=== PATIENT | female | born 1960 | race Caucasian/White ===

== ENCOUNTER 2021-03-23 11:20 | Outpatient (CLI) | payer OTHER, SELFPAY ==
--- NOTE | ~2021-03-23 | US_ITS ---
EXAMINATION: US renal BI DATE: 03/23/2021 12:46 INDICATION: Hypertension TECHNIQUE: Multiple grayscale and Doppler ultrasound images of the kidneys were obtained. COMPARISON: None. FINDINGS: The right kidney measures 8.5 x 3.2 x 4.2 cm. The left kidney measures 9.6 x 5 x 5.3 cm and contains a 4.4 cm cyst. The kidneys demonstrate normal parenchymal echogenicity. There is no hydrone phrosis. The bladder is normal. IMPRESSION: 1. Unremarkable kidneys without hydronephrosis. Reviewed, dictated and finalized at location A. T FLUNKY
--- NOTE | ~2021-03-23 | MM_ITS ---
EXAMINATION: MM screening [facility] BI w [facility]ina HISTORY: Screening TECHNIQUE: Craniocaudal and mediolateral oblique 3-D tomosynthesis images were obtained and synthetic 2-D images were generated. CAD analysis was submitted and interpreted. COMPARISON: 03/07/2012 BREAST PARENCHYMAL COMPOSITION: Breast composed of scattered areas of fibroglandular density FINDINGS: . The right breast is stable without evidence for malignancy. There is a new spiculated mas s in the mid outer aspect of the left breast posterior depth measuring 1.6 cm. There are dense masses overlying the left pectoralis muscle, likely lymph nodes. IMPRESSION: 1. New spiculated 1.6 cm mass mid outer aspect of the left breast. Probable abnormal left axillary ly mph nodes. 2. Additional mammographic views and possible breast ultrasound are recommended. BI-RADS Category 0: Incomplete: Needs additional imaging evaluation. Reviewed, dictated and finalized at location A. 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 New spiculated 1.6 cm mass mid outer aspect of the left breast. Probable abn ormal left axillary lymph nodes. 2. Additional mammographic views and possible breast ultrasound are recommended . BI-RADS Category 0: Incomplete: Needs additional imaging evaluation.
== END 2021-03-23 11:21 ==
DX: Z12.31 Encounter for screening mammogram for malignant neoplasm of breast (principal); N18.9 Chronic kidney disease, unspecified; E83.51 Hypocalcemia; L44.8 Other specified papulosquamous disorders; R92.8 Other abnormal and inconclusive findings on diagnostic imaging of breast; N28.1 Cyst of kidney, acquired
CPT/HCPCS: 76775; 77063; 77067

== ENCOUNTER → 2021-05-07 08:44 | Outpatient (CLI) | payer OTHER, SELFPAY ==
--- NOTE | ~2021-05-07 | MMUS_ITS ---
EXAMINATION: MM diagnostic cristina LT w alina, US breast LT limited HISTORY: Left breast mass on screening mammogram TECHNIQUE: Additional 3-D tomosynthesis images of the left breast were performed and synthetic 2-D im ages were generated. CAD analysis was submitted and interpreted. High resolution limited left breast ultrasound was performed. COMPARISON: 03/23/2021, 03/07/2012 BREAST PARENCHYMAL COMPOSITION: There are scattered areas of fibroglandular density. FINDINGS: MAMMOGRAPHIC FINDINGS: There is a 1.8 x 1.7 cm irregular, spiculated, high density mass in the posterior third of the outer left breast at the 3:00 location 8 cm from the nipple. There is architectural distortion surrounding the mass. ULTRASOUND: There is a 1.6 x 1.5 cm hypoechoic, irregular, not parallel mass with microlobulated margins, interna l vascularity, and posterior acoustic shadowing at the 3:00 location 6.5 cm from the nipple correspon ding to the mammographic finding in question. IMPRESSION: 1. Suspicious left breast mass. 2. Ultrasound-guided biopsy is recommended. BI-RADS category 5, highly suggestive of malignancy. Reviewed, dictated and finalized at location A. [employer] ENGINEER IMPRESSION: 1. Suspicious left breast mass. 2. Ultrasound-guided biopsy is recommended. BI-RADS category 5, highly suggestive of malignancy.
== END ==
DX: R92.8 Other abnormal and inconclusive findings on diagnostic imaging of breast (principal)
CPT/HCPCS: 76642; 77061; 77065; G0279